=== PATIENT | female | born 1975 | race Caucasian/White ===

== ENCOUNTER 2018-07-06 21:33 | Emergency (ER) | payer OTHER ==
[~2018-07-06] VITALS: Ht 162.6 cm; Wt 104.3 kg
[~2018-07-06 21:33] MED LIST: NOHOMEMEDICATIONS
[2018-07-06] MEDS ORDERED: MEDROL DOSPAK21 TA1 PO (22:09)
[2018-07-06] MEDS ORDERED: CLARITIN10 MG PO (22:09)
[2018-07-06] MEDS ORDERED: DOXYCYCLINE 10100 MG PO (22:09)
[2018-07-06 22:25] VITALS: BP 151/95
== END 2018-07-06 22:26 | disposition home or self-care (01) ==
LOC: M.ERS 21:33
DX: J32.0 Chronic maxillary sinusitis (principal); J32.1 Chronic frontal sinusitis; G43.909 Migraine, unspecified, not intractable, without status migrainosus; L40.9 Psoriasis, unspecified; Z87.442 Personal history of urinary calculi; Z90.49 Acquired absence of other specified parts of digestive tract; Z98.890 Other specified postprocedural states; Z88.1 Allergy status to other antibiotic agents; Z88.0 Allergy status to penicillin; Z88.5 Allergy status to narcotic agent; Z88.8 Allergy status to other drugs, medicaments and biological substances